=== PATIENT | female | born 1975 | race African-American/Black ===

== ENCOUNTER 2017-01-06 10:16 | Inpatient (IN) | payer OTHER ==
[~2017-01-06] VITALS: Ht 162.6 cm; Wt 75.4 kg
[2017-01-06 11:49] LABS: BASOPHIL % 0.4 % (0-2); PLATELET COUNT 314 x10^3mcL (130-400); RED CELL DISTRIBUTION WIDTH 13.3 % (11.5-14.5)
[2017-01-06 12:10] LABS: CALCIUM 9.3 mg/dL (8.5-10.1); CARBON DIOXIDE 28.8 mmol/L (21-32); CHLORIDE SERUM 109 mmol/L (98-107); CREATININE SERUM 0.9 mg/dL (0.6-1.0); GFR1 > 60 mL/min; GLUCOSE SERUM 82 mg/dL (74-106); POTASSIUM SERUM 3.6 mmol/L (3.5-5.1); SODIUM SERUM 142 mmol/L (136-145)
[2017-01-06 12:15] LABS: ALBUMIN 3.3 g/dL (3.4-5.0); ALKALINE PHOSPHATASE 70 U/L (46-116); ALT/SGPT 20 U/L (14-59); AST/SGOT 21 U/L (15-37); BILIRUBIN TOTAL 0.38 mg/dL (0.20-1.00); TOTAL PROTEIN, SERUM 7.9 g/dL (6.4-8.2)
[2017-01-06] MEDS ORDERED: MOT600 PO (12:54)
[2017-01-06] MEDS ORDERED: ENBREL50 MG/ML SC (12:54)
[2017-01-06 13:14] LABS: ERYTHROCYTE SED RATE 21 mm/hr (0-20)
[2017-01-06 14:11] VITALS: BP 118/76
[2017-01-06 16:16] LABS: T3 TOTAL 0.95 ng/mL
[2017-01-06 16:18] LABS: MAGNESIUM 2.2 mg/dL (1.8-2.4); PHOSPHOROUS 2.6 mg/dL (2.5-4.9)
[2017-01-06 16:19] LABS: CHOLESTEROL/HDL RATIO 2.8; FREE T4 1.02 ng/dL (0.76-1.46); FREE THYROXINE INDEX 2.7 ug/dL (1.4-4.5); T4(THYROXINE) 7.6 ug/dL (4.7-13.3)
[2017-01-06 16:28] VITALS: BP 110/63
[2017-01-06 21:03] VITALS: BP 99/68
[2017-01-07 04:41] LABS: CALCIUM 8.5 mg/dL (8.5-10.1); CARBON DIOXIDE 23.4 mmol/L (21-32); CHLORIDE SERUM 111 mmol/L (98-107); CREATININE SERUM 0.7 mg/dL (0.6-1.0); GFR1 > 60 mL/min; GLUCOSE SERUM 95 mg/dL (74-106); POTASSIUM SERUM 4.3 mmol/L (3.5-5.1); SODIUM SERUM 143 mmol/L (136-145)
[2017-01-07 04:44] LABS: BASOPHIL % 0.5 % (0-2); PLATELET COUNT 245 x10^3mcL (130-400); RED CELL DISTRIBUTION WIDTH 13.6 % (11.5-14.5)
[2017-01-07 06:01] VITALS: BP 107/72
[2017-01-07 10:11] VITALS: BP 102/71
[2017-01-07 13:30] VITALS: BP 102/71
[2017-01-07 13:31] VITALS: BP 118/78
== END 2017-01-07 15:23 | disposition home or self-care (01) | DRG 547 ==
LOC: ED 10:16 → DU 13:16
PROVIDERS: Emergency Medicine; ADMIT Family Medicine
DX: M06.9 Rheumatoid arthritis, unspecified (principal); Z68.28 Body mass index [BMI] 28.0-28.9, adult; F17.210 Nicotine dependence, cigarettes, uncomplicated; Z79.1 Long term (current) use of non-steroidal anti-inflammatories (NSAID); B37.9 Candidiasis, unspecified
CPT/HCPCS: 83880; 84439; J1885; J7030; Q0092

== ENCOUNTER 2017-09-09 09:11 | Emergency (ER) | payer OTHER ==
[~2017-09-09] VITALS: Ht 162.6 cm; Wt 78.0 kg
[~2017-09-09 09:11] MED LIST: ENBREL50 MG/ML SC; MOT600 PO
[2017-09-09 09:14] VITALS: Ht 162.6 cm; Wt 78.0 kg
[2017-09-09 10:20] VITALS: BP 124/89
== END 2017-09-09 10:20 | disposition home or self-care (01) ==
LOC: ED 09:11
DX: J03.90 Acute tonsillitis, unspecified (principal); M06.80 Other specified rheumatoid arthritis, unspecified site